=== PATIENT | female | born 1980 | race Caucasian/White ===

== ENCOUNTER 2017-11-18 20:57 | Emergency (ER) | payer BC ==
[~2017-11-18] VITALS: Ht 185.4 cm; Wt 93.0 kg
[~2017-11-18 20:57] MED LIST: ACCUNEB SO1.25 MG/1; ACETAMINOPHEN-1 EAC1 PO; BIRTH CONTROL; CIPRO250 M1 PO; CIPRO500 MG PO; CLONAZEPAM; DHA PRENATAL200 MG; ENOXAPARIN100 MG/11 SUBQ; FLEXERIL PO; FLONASE 0.05%50 MCG NASAL; HYDROCODONE-AP1 EAC6; IBUPROFEN 800800 M1; IBUPROFEN200 M2 PO; LOPRESSOR50 PO; MACROBID 100 M100 M1 PO; NORCO 5-325 TA1 EACH PO; NORFLEX100 MG PO; OMEPRAZOLE40 MG PO; PERCOCET 5-3251 EACH PO; PHENERGAN 25 MG25 MG PO; PREDNISONE 20 M20 M1 PO; PRENATAL; PROMETHAZINE-D120 ML PO; PROMETRIUM100 MG; PULMICORT FLEX90 MCG; REGLAN 5 MG TAB5 M1 PO; TRAMADOL 50 MG50 MG PO; VENTOLIN HFA 1818 GM; VENTOLIN17 GM INH; VICODIN 5-5001 EACH; VICODIN ES TAB1 EACH; VIGAMOX3 M1 OP; VITAMIN D-32000 UNIT; YASMIN 28 TABL1 EACH; ZOFRAN4 MG PO; ZPAK PO
[2017-11-18] MEDS ORDERED: [UNRECOGNIZED DRUG - REMARK] (21:09)
[2017-11-18] MEDS ORDERED: SERTRALINE HCL50 MG PO (21:09)
[2017-11-18] MEDS ORDERED: PREDNISONE50 MG PO (22:35)
[2017-11-18] MEDS ORDERED: AZITHROMYCIN 2250 MG PO (22:35)
[2017-11-18] MEDS ORDERED: PROAIR HFA8.5 GM PO (22:35)
[2017-11-18 23:00] VITALS: BP 129/84
--- NOTE | 2017-11-19 14:03 | EKG ---
[place] [address] ELECTROCARDIOGRAM REPORT Name: SUMMER KONG [id number] Admission: 11/18/17 Attend Phys: Discharge: 11/18/17 Date of : 76 Report #: [id number] THIS REPORT FOR: //name// [facility] ED Test Date: 2017-11-18 Test Time: 21:04:52 Pat Name: SUMMER KONG Department: Room: Gender: F Virtual Customer Assistant: CANDIDO : 1980 Requested By: Mari Quijano Order Number: [id number] Vicki MD: Oscar Angeles Measurements Intervals [place] Rate: 93 P: 57 CO: 164 QRS: 7 QRSD: 98 T: 28 QT: 356 QTc: 443 Interpretive Statements Sinus rhythm Borderline T wave abnormalities No previous ECG available for comparison Electronically Signed On 11-19-2017 14:03:12 CDT by Oscar Angeles [email or web address] <ELECTRONICALLY SIGNED> By: Oscar Angeles MD, [facility] 11/19/17 1403 2104 2104 Oscar Angeles MD, FACC /EPI
[2018-03-04] MEDS ORDERED: ZANAFLEX4 MG PO (12:54)
[2018-03-04] MEDS ORDERED: FLONASE 0.05%50 MCG NASAL (12:54)
[2018-03-04] MEDS ORDERED: ALLERGY RELIEF10 M5 PO (12:54)
[2018-03-04] MEDS ORDERED: MOBIC15 MG PO (13:16)
[2018-03-04] MEDS ORDERED: NEURONTIN 300300 M1 PO (13:16)
[2018-03-30] MEDS ORDERED: MOBIC15 MG PO (08:21)
[2018-03-30] MEDS ORDERED: NEURONTIN 300300 M1 PO (08:21)
[2018-04-01] MEDS ORDERED: NEURONTIN 300300 M1 PO (08:15)
[2018-04-01] MEDS ORDERED: MOBIC15 MG PO ×2 (08:15→08:54)
[2018-04-01] MEDS ORDERED: REQUIP0.5 MG PO (08:54)
== END 2017-11-18 23:11 | disposition home or self-care (01) ==
LOC: M.ERS 20:57
DX: J40 Bronchitis, not specified as acute or chronic (principal); J98.01 Acute bronchospasm; G89.29 Other chronic pain; M54.2 Cervicalgia; M54.9 Dorsalgia, unspecified; F17.210 Nicotine dependence, cigarettes, uncomplicated; Z90.49 Acquired absence of other specified parts of digestive tract

== ENCOUNTER → 2018-01-15 | Outpatient (CLI) | payer BC ==
[~2018-01-15] MED LIST changes: +ALLERGY RELIEF10 M5 PO; +AZITHROMYCIN 2250 MG PO; +MOBIC15 MG PO; +NEURONTIN 300300 M1 PO; +PREDNISONE50 MG PO; +PROAIR HFA8.5 GM PO; +REQUIP0.5 MG PO; +SERTRALINE HCL50 MG PO; +ZANAFLEX4 MG PO; +[UNRECOGNIZED DRUG - REMARK]
== END ==
LOC: M.MRI 08:08
DX: M47.22 Other spondylosis with radiculopathy, cervical region (principal); M48.02 Spinal stenosis, cervical region; M50.11 Cervical disc disorder with radiculopathy, high cervical region

== ENCOUNTER → 2018-03-04 | Outpatient (CLI) | payer BC ==
--- NOTE | 2018-03-22 10:00 | PAINCON ---
[address] [address] PAIN MANAGEMENT CONSULTATION Name: SUMMER KONG [id number] Admission: 03/04/18 Attend Phys: Roel Shaw MD Discharge: Date of : 76 Report #: [id number] THIS REPORT FOR: //name// CC: Martinez Shaw DATE OF SERVICE: 03/04/2018 CHIEF COMPLAINT: Neck pain, back pain and pain down in the arms. HISTORY OF PRESENT ILLNESS: The patient is a 37-year-old female who has been referred to the pain clinic for evaluation. The patient is experiencing pain and discomfort in her arms, left as well as the right side. Notes that the pain increases with movement and finds it difficult to raise her arms at times. Sometimes raising the coffee cup to her mouth can be problematic. Using her hands extended can exacerbate pain. She has a history of pain in her neck. Rates her pain as a 5/5 at this juncture. It has gotten progressively worse. There was some consideration about surgery. The patient did not undergo the surgery secondary to economic reasons. Over the last 2 months, pain has gotten significantly worse. She states that "feels like someone is pulling the nerves out of my arms through my back." Pain is exacerbated with extension, pushing and pulling. She is not sure what makes it better other than cessation of activity. Describes as rhythmic, burning, shooting, aching, pulling, intermittent momentary sharp and stabbing. She had an MRI that showed some pressure in her neck secondary to disk bulging. The patient has been given the option to undergo physical therapy. ALLERGIES: No known drug allergies. MEDICATIONS: Ibuprofen, tizanidine 4 mg t.i.d. and at bedtime, cetirizine 10 mg, Flonase 0.05% nasal spray, omeprazole 40 mg before meals, Zoloft 50 mg, Zanaflex 4 mg t.i.d., and control pills. PAST MEDICAL HISTORY: Sinusitis, varicose veins, knee pain, preclampsia, chronic neck and back pain, deep vein thrombosis, essential hypertension, ulcers, emotional problems, asthma, anemia, epilepsy/seizures. PAST SURGICAL HISTORY: Cholecystectomy in 2001, left knee surgery in 2008. SOCIAL HISTORY: Work History: The patient worked as a ____. She is not working at this juncture, has not worked for the last 2 months. REVIEW OF SYSTEMS: Generally good health, weight change, fatigue, weakness, headaches, wears glasses, hearing loss, ringing in the ears, chronic ear discomfort, chronic sinus problems, swollen glands in the neck, heart trouble, palpitations, shortness of breath when lying flat, chronic cough, [place] [address] PAIN MANAGEMENT CONSULTATION Name: SUMMER KONG [id number] Admission: 03/04/18 Attend Phys: Roel Shaw MD Discharge: Date of : 76 Report #: [id number] asthma/wheezing, frequent diarrhea, heat and cold intolerance, joint pain, joint stiffness, weakness of muscles and joints, muscle pain and cramps, back pain, difficulty walking; varicose veins; frequent headaches, lightheadedness, numbness and tingling sensation, tremors, paralysis, memory loss, confusion, nervousness, depression, anemia. PAIN CLINIC ASSESSMENT/PQRS: 1. History of osteoarthritis. The patient has some arthritic changes in her left knee. 2. Rheumatoid arthritis. The patient is not being treated for rheumatoid arthritis. 3. Height 6 feet 1 inch, weight 221 pounds, BMI is 29.2. 4. Vital Signs: Blood pressure 137/76, heart rate 92, respiratory rate 16, room air saturation 99%, temperature 98.4. 5. Pain intensity 5/10. 6. Fall risk. The patient has not fallen in the last 3 months. 7. Blood thinner. The patient is not on a blood thinning medication. 8. Hypertension. The patient is being treated for hypertension. 9. Opioids greater than 6 weeks. The patient is not on a chronic opioid regimen. 10. Risk assessment tool, low for opioid use. 11. Functional assessment tool. 12. Recreational drug use: The patient denies. 13. Tobacco: The patient does not smoke at this juncture. 14. Alcohol: The patient denies frequent use of alcoholic beverages. The patient answers affirmative. Two attempts to harm herself. States that this happened about 1-1/2 years ago . Has not had problems with that since. PHYSICAL EXAMINATION: GENERAL: The patient is a well-developed, well-nourished white female. Appears her stated age. She is alert and oriented x 3. Affect is appropriate. Speech is fluent. HEENT: Normocephalic, atraumatic. Extraocular eye muscles intact. Sclerae nonicteric. Mucous membranes are moist. NECK: With some decreased range of motion. The patient has pain radiating down into the left as well as the right arm. Note some numbness, tingling and burning in her arms bilaterally. Experience some pins and needle sensation down in her hands. Deep tendon reflexes are +1 in the biceps bilaterally. Upper extremity muscle strength is judged to be 5-/5 for the major muscle groups in the upper extremity. The patient has some discomfort in the mid portion of her back at approximately T7-T8 in the area of rhomboids. The patient has some pain and discomfort in the low back area in the area of the L5/S1 area in the paraspinous muscles. The patient is without significant scoliosis, kyphosis or lordosis. HEART: Regular rate and rhythm, S1, [place] [address] PAIN MANAGEMENT CONSULTATION Name: SUMMER KONG Room: [facility]#: [id number] Admission: 03/04/18 Attend Phys: Roel Shaw MD Discharge: Date of : 76 Report #: [id number] ABDOMEN: Nontender. Bowel sounds are present. EXTREMITIES: Lower extremity muscle strength is judged to be 5/5 for the major muscle groups in the lower extremities. The patient does complain of some pain in the left posterior L5-S1 dermatomal distribution. LABORATORY DATA: MRI of the cervical spine dated 01/15/2018 reveals: 1. At C2-C3, there is no significant disk bulge or protrusion identified. There is no significant central spinal canal or neural foraminal stenosis. 2. At C3-C4, there is a mild broad-based posterior disk bulge with a superimposed shallow left paracentral disk protrusion with a 2 x 3 mm hyperintensity within the shallow disk protrusion consistent with an annular fissure seen on T2. No significant central spinal canal or neural foraminal stenosis. There is mild left paracentral canal stenosis. 3. At C4-C5, there is no significant disk bulge or protrusion identified. There is no significant central canal or neural foraminal stenosis. 4. At C5-C6, there is a broad-based posterior disk bulge, which narrows the thecal sac. No significant central spinal canal stenosis. There is mild right and moderate to severe left neural foraminal stenosis due to uncovertebral and facet arthrosis. 5. At C6-C7, there is no significant disk bulge or protrusion identified. There is no significant central canal or neural foraminal stenosis. 6. At C7-T1, there is no significant disk bulge or protrusion identified. There is no significant central spinal canal or neural foraminal stenosis. IMPRESSION: Moderate to severe left neural foraminal stenosis at C5-C6 due to uncovertebral and facet arthrosis. Shallow left paracentral disk protrusion at C3-C4, mildly efface seen the ventral thecal sac. IMPRESSION: 1. Cervical radiculopathy involving left and right upper extremity with numbness and tingling in the C5-C6 dermatomal distribution. 2. Sinusitis. 3. Varicose veins. 4. Knee pain. 5. Preclampsia. 6. Chronic neck and back pain. 7. Deep vein thrombosis. 8. Essential hypertension. 9. Ulcers. 10. Emotional problems. 11. Asthma. 12. Anemia. 13. Epilepsy/seizures. RECOMMENDATIONS: We discussed treatment options with the patient. Risks and benefits of a cervical epidural steroid injection [place] [address] PAIN MANAGEMENT CONSULTATION Name: SUMMER KONG Room: [facility] JOSE LUIS Cm#: [id number] Admission: 03/04/18 Attend Phys: Roel Shaw MD Discharge: Date of : 76 Report #: [id number] states that she did have spinal headache after previous epidural steroid injection. At this juncture, we will have the patient trial. We will have the patient try meloxicam 15 mg 1 p.o. daily. She will also try gabapentin 300 mg 1 p.o. t.i.d. If her pain persists, she will return to the pain clinic at which time she can consider whether a cervical epidural steroid injection would be chosen. We would like to thank you for letting us participate in her care. We hope she continues to improve. <ELECTRONICALLY SIGNED> By: Roel Shaw MD 03/22/18 1000 1340 1724N. Braden Shaw MD /estela
== END ==
LOC: M.PC 04:56
DX: M54.12 Radiculopathy, cervical region (principal); M54.5 Low back pain; J32.9 Chronic sinusitis, unspecified; I10 Essential (primary) hypertension; G89.29 Other chronic pain; I82.409 Acute embolism and thrombosis of unspecified deep veins of unspecified lower extremity; J45.909 Unspecified asthma, uncomplicated; R20.0 Anesthesia of skin; G40.909 Epilepsy, unspecified, not intractable, without status epilepticus; I83.90 Asymptomatic varicose veins of unspecified lower extremity; F98.9 Unspecified behavioral and emotional disorders with onset usually occurring in childhood and adolescence; L98.499 Non-pressure chronic ulcer of skin of other sites with unspecified severity; D64.9 Anemia, unspecified

== ENCOUNTER → 2018-04-01 | Outpatient (CLI) | payer BC ==
--- NOTE | 2018-04-21 16:28 | PAINCON ---
[facility] [address] [place] [address] [address] PAIN MANAGEMENT CONSULTATION Name: SUMMER KONG Room: [facility] Soila#: [id number] Admission: 04/01/18 Attend Phys: Roel Shaw MD Discharge: Date of : 76 Report #: [id number] THIS REPORT FOR: //name// CC: Martinez Shaw DATE OF SERVICE: 04/01/2018 CHIEF COMPLAINT: "The pain has improved but I have been a little sleepy with gabapentin." FOLLOWUP HISTORY: The patient is a 37-year-old female who has been seen in the Pain Clinic because of cervical radicular pain. She had been experiencing pain in her neck, back, and pain which radiated down into her arms, involved her fingers and hands. She works at [employer]. She drives a forklift. She constantly has to turn her head looking back behind her while she is driving as well as looking at the rear-view mirrors on her lift-truck. She notes that these activities have sometimes increased her pain and discomfort. She has been on gabapentin for about 3 weeks. She noticed that pain shooting down into her arms and numbness involving her fingers has improved. She has had no complication from that. She has now decreased the gabapentin from 300 mg t.i.d. to 100 mg t.i.d. She also has a history of heart palpitations. She is not sure but thinks that she has had some increased palpitations at this juncture. She is not sure that whether or not it is associated with the use of gabapentin. She uses meloxicam. She feels that medication is helpful. She has been using ibuprofen as well as has nonsteroidal anti-inflammatory medication and other medications that she uses. She feels that her pain is a 2/10 at this juncture. It can rise to the level of a 5 with certain activities. ALLERGIES: No known drug allergies. CURRENT MEDICATIONS: Ibuprofen 500 mg b.i.d., 1000 mg daily on occasion, tizanidine 4 mg t.i.d. at bedtime, cetirizine 10 mg, Flonase 0.05% nasal spray, omeprazole 40 mg before meals, Zoloft 40 mg, Zanaflex 4 mg t.i.d., control pills. PAIN CLINIC ASSESSMENT/PQRS: 1. History of osteoarthritis: The patient is not being treated for osteoarthritis but does have some arthritic changes in her left knee. 2. Height 6 feet 1 inch, weight 228 pounds, BMI is 30.1. 3. Vital signs: Blood pressure 133/88, heart rate 76, respiratory rate 16, room air saturation 97%, temperature 98.6. 4. Pain intensity: 2/10. 5. Fall history: The patient has not fallen in the last 3 months. 6. Blood thinner: The patient is not on a blood thinning medication. 7. Hypertension: The patient [place] [address] PAIN MANAGEMENT CONSULTATION Name: LUANNSUMMER TAMIA Room: [facility] JOSE LUIS Cm#: [id number] Admission: 04/01/18 Attend Phys: Roel Shaw MD Discharge: Date of : 76 Report #: [id number] 8. Opioids greater than 6 weeks: The patient is not on chronic opioid medications. 9. Risk assessment tool: Low for use of opioids. 10. Functional assessment tool. 11. Recreational drug use: The patient denies. 12. Tobacco: The patient does smoke and has smoked for 23 years. She smokes 1 pack of cigarettes per day. We discussed the benefits of smoking cessation. 13. Alcohol: The patient denies use of alcoholic beverages. PHYSICAL EXAMINATION: GENERAL: The patient is a well-developed, well-nourished white female. She appears her stated age. She is alert and oriented x 3. Affect is appropriate. Speech is fluent. The patient's legs are in constant motion. HEENT: Normocephalic, atraumatic. Extraocular eye muscles intact. Sclerae nonicteric. Mucous membranes moist. NECK: With some decreased range of motion. The patient states that the pain has been radiating down to her arms, numbness and tingling as well as the burning has improved significantly since using gabapentin. Less pins and needle sensation also has resolved. Muscle strength though judged to be 5/5 for the major muscle groups in the upper extremity. ABDOMEN: Nontender. Bowel sounds present. EXTREMITIES: Lower extremities, 5/5 for the major muscle groups. The patient without scoliosis, kyphosis, or lordosis. IMPRESSION: 1. Cervical radiculopathy involving the left and right upper extremity with numbness and tingling in the C5-C6 dermatomal distribution - improved with current medical regimen using gabapentin. 2. Sinusitis. 3. Varicose veins. 4. Knee pain. 5. Preeclampsia. 6. Chronic neck and back pain. 7. Deep vein thrombosis. 8. Essential hypertension. 9. Ulcers. 10. Emotional problems. 11. Asthma. 12. Anemia. 13. Epilepsy, seizures. RECOMMENDATIONS: We discussed treatment options with the patient. We had a long discussion regarding the effects of nonsteroidal anti-inflammatory medication and their mode of action. We discussed the problems with them and possibly irritation of the GI tract. The patient has had some ulcers. We would recommend that she stop using the meloxicam [place] [address] PAIN MANAGEMENT CONSULTATION Name: SUMMER KONG [facility] [id number] Admission: 04/01/18 Attend Phys: Roel Shaw MD Discharge: Date of : 76 Report #: [id number] anti-inflammatory medications if she continues to have some problems with her GI tract. The patient overall feels that things have improved. She likes the benefits that she has got from the gabapentin medication. She does have a history of restless legs syndrome and has used Klonopin in the past. She is wanting to return to work. She feels that she is less sleepy with decreasing the gabapentin. If she continues to find the benefits of gabapentin there but continues to have somnolence associated with it, we can try Gralise, which is a slow-release gabapentin type medication which most people who are unable to take gabapentin because of the side effects of somnolence are more apt to be able to take it with less problems. She will try Requip 0.5 mg one p.o. at bedtime. She does have restless legs syndrome. This medication has been ____ to be helpful with restless legs. She will call us if she has any problems. A script for Requip 0.5 mg one p.o. daily has been written. Also a script for meloxicam 15 mg one p.o. daily with two refills have been provided as well. We would like to thank you for letting us participate in her care. We hope she continues to improve. <ELECTRONICALLY SIGNED> By: Roel Shaw MD 04/21/18 1628 0911 1006N. Braden Shaw MD /nt
== END ==
LOC: M.PC 04:41
DX: J32.9 Chronic sinusitis, unspecified (principal); M54.12 Radiculopathy, cervical region; M25.569 Pain in unspecified knee; D64.9 Anemia, unspecified; M54.5 Low back pain; M54.2 Cervicalgia; G89.29 Other chronic pain; J45.909 Unspecified asthma, uncomplicated; R56.9 Unspecified convulsions; L98.499 Non-pressure chronic ulcer of skin of other sites with unspecified severity; F98.9 Unspecified behavioral and emotional disorders with onset usually occurring in childhood and adolescence; I10 Essential (primary) hypertension; I82.409 Acute embolism and thrombosis of unspecified deep veins of unspecified lower extremity; I83.813 Varicose veins of bilateral lower extremities with pain

== ENCOUNTER 2018-06-09 22:44 | Emergency (ER) | payer BC ==
[~2018-06-09] VITALS: Ht 185.4 cm; Wt 99.8 kg
[2018-06-09] MEDS ORDERED: HYDROCODON-ACE1 EAC5 PO (22:52)
[2018-06-09 23:54] LABS: URINE BILIRUBIN NEGATIVE (Negative); URINE BLOOD NEGATIVE (Negative); URINE CLARITY CLEAR; URINE COLOR DARK YELLOW; URINE GLUCOSE-RANDOM NEGATIVE (Negative); URINE KETONES NEGATIVE (Negative); URINE LEUKOCYTES-REFLEX NEGATIVE (Negative); URINE NITRITE-REFLEX NEGATIVE (Negative); URINE PROTEIN NEGATIVE (Negative); URINE SPECIFIC GRAVITY >= 1.030 (1.005-1.030); URINE UROBILINOGEN 0.2 E.U./dl (0.2-1.0)
[2018-06-10 00:10] LABS: ABSOLUTE EOSINOPHILS 0.2 thou/uL (0.0-0.7); ABSOLUTE LYMPHOCYTES 2.7 thou/uL (0.8-5.3); ABSOLUTE MONOCYTES 0.5 thou/uL (0.0-1.2); ABSOLUTE NEUTROPHILS 8.2 thou/uL (1.6-8.1); BASOPHILS 0.4 %; EOSINOPHILS 1.7 %; HEMATOCRIT 39.2 % (37.0-47.0); HEMOGLOBIN 12.2 gm/dL (12.0-15.0); LYMPHOCYTES 23.1 %; MCH 21.4 pg (26.0-34.0); MCHC 31.1 g/dL (28.0-37.0); MCV 68.8 fL (80.0-100.0); MONOCYTES 4.1 %; NUCLEATED RBCS 0 /100WBC; PLATELET COUNT* 247 thou/uL (150-400); POLYS 70.7 %; RBC 5.69 mil/uL (4.20-5.00); RDW-CV 17.5 % (10.5-14.5); WBC 11.6 thou/uL (4.0-11.0)
[2018-06-10 00:13] LABS: CALCIUM 9.2 mg/dL (8.5-10.1); CREATININE 0.9 mg/dL (0.6-1.3); POTASSIUM 3.7 mmol/L (3.5-5.1)
[2018-06-10 00:23] LABS: ALBUMIN 4.3 g/dL (3.4-5.0); TOTAL BILIRUBIN 0.4 mg/dL (<0.1-1.0); TOTAL PROTEIN 7.8 g/dL (6.4-8.2)
[2018-06-10 01:51] LABS: ANISOCYTOSIS 2+; HYPOCHROMASIA 2+; MICROCYTES 2+
[2018-06-10 01:52] LABS: POIKILOCYTOSIS Occasional; POLYCHROMASIA Occasional
[2018-06-10] MEDS ORDERED: PERCOCET 10-321 EACH PO (02:09)
[2018-06-10 02:38] VITALS: BP 126/80
== END 2018-06-10 02:40 | disposition home or self-care (01) ==
LOC: M.ERS 22:44
PROVIDERS: Emergency Medicine
DX: N83.201 Unspecified ovarian cyst, right side (principal); F17.210 Nicotine dependence, cigarettes, uncomplicated; G89.29 Other chronic pain; M54.2 Cervicalgia; M54.9 Dorsalgia, unspecified; Z90.49 Acquired absence of other specified parts of digestive tract; Z86.718 Personal history of other venous thrombosis and embolism

== ENCOUNTER 2018-10-18 16:01 | Emergency (ER) | payer BC ==
[~2018-10-18] VITALS: Ht 185.4 cm; Wt 95.3 kg
[~2018-10-18 16:01] MED LIST changes: +HYDROCODON-ACE1 EAC5 PO; +PERCOCET 10-321 EACH PO
[2018-10-18 16:29] LABS: ABSOLUTE EOSINOPHILS 0.2 thou/uL (0.0-0.7); ABSOLUTE LYMPHOCYTES 1.7 thou/uL (0.8-5.3); ABSOLUTE MONOCYTES 0.3 thou/uL (0.0-1.2); ABSOLUTE NEUTROPHILS 4.8 thou/uL (1.6-8.1); BASOPHILS 0.6 %; EOSINOPHILS 2.3 %; HEMATOCRIT 37.8 % (37.0-47.0); HEMOGLOBIN 11.9 gm/dL (12.0-15.0); LYMPHOCYTES 23.8 %; MCH 21.4 pg (26.0-34.0); MCHC 31.4 g/dL (28.0-37.0); MCV 68.2 fL (80.0-100.0); MONOCYTES 4.6 %; MPV 9.4 fl. (7.2-11.1); NUCLEATED RBCS 0 /100WBC; PLATELET COUNT* 211 thou/uL (150-400); POLYS 68.7 %; RBC 5.53 mil/uL (4.20-5.00)
[2018-10-18 16:38] LABS: CALCIUM 8.6 mg/dL (8.5-10.1); CREATININE 1.1 mg/dL (0.6-1.3); POTASSIUM 3.6 mmol/L (3.5-5.1)
[2018-10-18 16:42] LABS: ALBUMIN 3.9 g/dL (3.4-5.0); TOTAL BILIRUBIN 0.4 mg/dL (<0.1-1.0); TOTAL PROTEIN 7.1 g/dL (6.4-8.2)
[2018-10-18 17:34] LABS: URINE BILIRUBIN NEGATIVE (Negative); URINE BLOOD NEGATIVE (Negative); URINE CLARITY CLEAR; URINE COLOR YELLOW; URINE GLUCOSE-RANDOM NEGATIVE (Negative); URINE KETONES NEGATIVE (Negative); URINE LEUKOCYTES-REFLEX 1+ (Negative); URINE NITRITE-REFLEX NEGATIVE (Negative); URINE PROTEIN NEGATIVE (Negative); URINE UROBILINOGEN 0.2 E.U./dl (0.2-1.0)
[2018-10-18 17:43] LABS: MUCUS 0-3 Light strn/LPF (None Seen); SQUAMOUS >10 Many /LPF (0-3)
[2018-10-18 17:44] LABS: URINE WBC-REFLEX >25 Many /HPF (0-5)
[2018-10-18 17:45] LABS: CASTS None Seen /LPF (None Seen); CRYSTALS None Seen /LPF (None Seen); URINE RBC None Seen /HPF (0-2)
[2018-10-18 17:56] LABS: OVALOCYTES Occasional; PLATELET ESTIMATE ADEQUATE
[2018-10-18 17:57] LABS: ANISOCYTOSIS 1+; MICROCYTES 3+
[2018-10-18 17:59] LABS: HYPOCHROMASIA 2+
[2018-10-18] MEDS ORDERED: KEFLEX500 M1 PO (18:11)
[2018-10-18] MEDS ORDERED: NORCO 5-325 TA1 EACH PO (18:12)
[2018-10-18] MEDS ORDERED: PYRIDIUM200 MG PO (18:19)
[2018-10-18 18:49] VITALS: BP 109/72
== END 2018-10-18 18:45 | disposition home or self-care (01) ==
LOC: M.ERS 16:01
PROVIDERS: Nurse Practitioner Family
DX: N39.0 Urinary tract infection, site not specified (principal); R11.2 Nausea with vomiting, unspecified; G89.29 Other chronic pain; M54.2 Cervicalgia; M54.9 Dorsalgia, unspecified; F17.210 Nicotine dependence, cigarettes, uncomplicated; Z90.49 Acquired absence of other specified parts of digestive tract

== ENCOUNTER 2018-11-24 19:53 | Emergency (ER) | payer BC ==
[~2018-11-24] VITALS: Ht 185.4 cm; Wt 93.0 kg
[~2018-11-24 19:53] MED LIST changes: +KEFLEX500 M1 PO; +PYRIDIUM200 MG PO
[2018-11-24 20:29] LABS: ABSOLUTE EOSINOPHILS 0.1 thou/uL (0.0-0.7); ABSOLUTE LYMPHOCYTES 1.5 thou/uL (0.8-5.3); ABSOLUTE MONOCYTES 0.4 thou/uL (0.0-1.2); ABSOLUTE NEUTROPHILS 3.6 thou/uL (1.6-8.1); BASOPHILS 0.6 %; EOSINOPHILS 2.1 %; HEMATOCRIT 37.4 % (37.0-47.0); HEMOGLOBIN 11.9 gm/dL (12.0-15.0); LYMPHOCYTES 26.1 %; MCH 21.6 pg (26.0-34.0); MCHC 31.8 g/dL (28.0-37.0); MONOCYTES 7.6 %; MPV 9.3 fl. (7.2-11.1); NUCLEATED RBCS 0 /100WBC; PLATELET COUNT* 244 thou/uL (150-400); POLYS 63.6 %; RBC 5.51 mil/uL (4.20-5.00); RDW-CV 18.9 % (10.5-14.5); WBC 5.7 thou/uL (4.0-11.0)
[2018-11-24 20:38] LABS: ANION GAP 10 mmol/L (7-16); BUN 15 mg/dL (7-18); CALCIUM 9.3 mg/dL (8.5-10.1); CHLORIDE 105 mmol/L (98-107); CO2 26 mmol/L (21-32); CREATININE 0.9 mg/dL (0.6-1.3); GLUCOSE 97 mg/dL (70-99); SODIUM 141 mmol/L (136-145)
[2018-11-24 20:39] LABS: PROTIME 10.7 Seconds (9.20-11.50)
[2018-11-24 20:48] LABS: ALBUMIN 4.2 g/dL (3.4-5.0); ALKALINE PHOSPHATASE 62 U/L (46-116); LIPASE 122 U/L (73-393); NT-PRO BRAIN NAT PEPTIDE 47 pg/mL (<300); SGOT 13 U/L (15-37); SGPT 23 U/L (30-65); TOTAL BILIRUBIN 0.3 mg/dL (<0.1-1.0); TOTAL PROTEIN 7.5 g/dL (6.4-8.2); TROPONIN-I LEVEL <0.06 ng/mL (<0.06)
[2018-11-24 20:52] LABS: ANISOCYTOSIS 1+; PLATELET ESTIMATE ADEQUATE
[2018-11-24 20:53] LABS: MICROCYTES 3+
[2018-11-24 20:54] LABS: HYPOCHROMASIA 1+
[2018-11-24 23:35] VITALS: BP 118/80
--- NOTE | 2018-11-25 10:51 | EKG ---
[place] [address] ELECTROCARDIOGRAM REPORT Name: LUANNSUMMERPRINCESS CANTRELL [id number] Admission: 11/24/18 Attend Phys: Discharge: 11/24/18 Date of : 76 Report #: [id number] THIS REPORT FOR: //name// [facility] ED Test Date: 2018-11-24 Test Time: 20:00:57 Pat Name: SUMMER KONG Department: Room: Gender: F Relocation Services Specialist: LINDA : 1980 Requested By: Sam Brown Order Number: [id number] MD: Martinez English Measurements Intervals [place] Rate: 69 P: 69 NE: 156 QRS: 5 QRSD: 106 T: 44 QT: 427 QTc: 458 Interpretive Statements Sinus rhythm Probable left atrial enlargement Compared to ECG 11/18/2017 21:04:52 no change Electronically Signed On 11-25-2018 10:51:29 CDT by Martinez English [email or web address] <ELECTRONICALLY SIGNED> By: Martinez English MD, [facility] 11/25/18 1051 99 99 Martinez English MD, FACC /EPI
== END 2018-11-24 23:35 | disposition home or self-care (01) ==
LOC: M.ERS 19:53
PROVIDERS: Emergency Medicine
DX: R55 Syncope and collapse (principal); F17.210 Nicotine dependence, cigarettes, uncomplicated; M54.2 Cervicalgia; G89.29 Other chronic pain; Z86.718 Personal history of other venous thrombosis and embolism; Z90.49 Acquired absence of other specified parts of digestive tract

== ENCOUNTER → 2019-01-10 | Outpatient (CLI) | payer BC | LOC: M.MRI 01-04 08:42 | DX: M79.601 Pain in right arm (principal); M79.641 Pain in right hand ==

== ENCOUNTER → 2019-06-16 | Outpatient (CLI) | payer BC ==
[~2019-06-16] MED LIST changes: +MEDROLDOSEPACK PO; +NABUMETONE 750750 M1 PO; +VENTOLIN HFA 1818 GM INH
[2019-06-16 18:34] LABS: ABSOLUTE BASOPHILS 0.1 thou/uL (0.0-0.2); ABSOLUTE EOSINOPHILS 0.1 thou/uL (0.0-0.7); ABSOLUTE LYMPHOCYTES 1.5 thou/uL (0.8-5.3); ABSOLUTE MONOCYTES 0.3 thou/uL (0.0-1.2); ABSOLUTE NEUTROPHILS 6.1 thou/uL (1.6-8.1); BASOPHILS 0.7 %; HEMATOCRIT 39.9 % (37.0-47.0); HEMOGLOBIN 13.2 gm/dL (12.0-15.0); LYMPHOCYTES 18.6 %; MCH 23.9 pg (26.0-34.0); MCV 72.4 fL (80.0-100.0); MONOCYTES 3.9 %; MPV 9.3 fl. (7.2-11.1); NUCLEATED RBCS 0 /100WBC; PLATELET COUNT* 192 thou/uL (150-400); POLYS 75.8 %; RBC 5.51 mil/uL (4.20-5.00); RDW-CV 18.9 % (10.5-14.5)
[2019-06-16 18:47] LABS: ALBUMIN 4.1 g/dL (3.4-5.0); ALKALINE PHOSPHATASE 66 U/L (46-116); ANION GAP 12 mmol/L (7-16); BUN 16 mg/dL (7-18); CALCIUM 8.9 mg/dL (8.5-10.1); CHLORIDE 104 mmol/L (98-107); CHOLESTEROL 208 mg/dL (<200); CO2 25 mmol/L (21-32); GLUCOSE 103 mg/dL (70-99); HDL CHOLESTEROL 43 mg/dL (>40); LDL CHOLESTEROL 147 mg/dL (<100); MAGNESIUM 1.6 mg/dL (1.8-2.4); POTASSIUM 3.9 mmol/L (3.5-5.1); SGOT 10 U/L (15-37); SGPT 17 U/L (30-65); SODIUM 141 mmol/L (136-145); TC:HDL 4.8 Ratio (Not establshd); TOTAL BILIRUBIN 0.3 mg/dL (<0.1-1.0); TOTAL PROTEIN 7.5 g/dL (6.4-8.2); TRIGLYCERIDE 94 mg/dL (<150); VLDL 19 mg/dL (<40)
[2019-06-16 18:49] LABS: SERUM ASSESSMENT CLEAR
[2019-06-16 20:12] LABS: PLATELET ESTIMATE ADEQUATE
[2019-06-16 20:13] LABS: ANISOCYTOSIS 1+; MICROCYTES 1+
[2019-06-18 02:06] LABS: GLYCOHEMOGLOBIN (HGB A1C) 5.2 % (4.8-5.6)
== END ==
LOC: M.LAB 17:52
PROVIDERS: Internal Medicine
DX: I82.90 Acute embolism and thrombosis of unspecified vein (principal); I47.1 Supraventricular tachycardia; I10 Essential (primary) hypertension; R00.2 Palpitations

== ENCOUNTER 2019-06-19 11:41 | Emergency (ER) | payer BC ==
[~2019-06-19] VITALS: Ht 185.4 cm; Wt 86.2 kg
[~2019-06-19 11:41] MED LIST changes: -MEDROLDOSEPACK PO; -NABUMETONE 750750 M1 PO; -VENTOLIN HFA 1818 GM INH
[2019-06-19 12:34] LABS: INFLUENZA A ANTIGEN Negative (Negative); INFLUENZA B ANTIGEN Negative (Negative)
[2019-06-19 13:07] LABS: ABSOLUTE BASOPHILS 0.1 thou/uL (0.0-0.2); ABSOLUTE EOSINOPHILS 0.2 thou/uL (0.0-0.7); ABSOLUTE LYMPHOCYTES 1.7 thou/uL (0.8-5.3); ABSOLUTE MONOCYTES 0.5 thou/uL (0.0-1.2); ABSOLUTE NEUTROPHILS 4.7 thou/uL (1.6-8.1); EOSINOPHILS 2.3 %; HEMATOCRIT 36.9 % (37.0-47.0); HEMOGLOBIN 12.1 gm/dL (12.0-15.0); LYMPHOCYTES 23.7 %; MCH 23.8 pg (26.0-34.0); MCHC 32.8 g/dL (28.0-37.0); MCV 72.5 fL (80.0-100.0); MONOCYTES 7.1 %; MPV 9.1 fl. (7.2-11.1); NUCLEATED RBCS 0 /100WBC; PLATELET COUNT* 183 thou/uL (150-400); POLYS 65.9 %; RBC 5.09 mil/uL (4.20-5.00); RDW-CV 18.8 % (10.5-14.5); WBC 7.1 thou/uL (4.0-11.0)
[2019-06-19 13:14] LABS: CALCIUM 8.3 mg/dL (8.5-10.1); POTASSIUM 3.6 mmol/L (3.5-5.1)
[2019-06-19 13:17] LABS: APTT 24.9 Seconds (25.0-31.3); INR 1.1
[2019-06-19 13:25] LABS: ALBUMIN 3.4 g/dL (3.4-5.0); TOTAL BILIRUBIN 0.1 mg/dL (<0.1-1.0); TOTAL PROTEIN 6.3 g/dL (6.4-8.2)
[2019-06-19] MEDS ORDERED: ZPAK PO (15:44)
[2019-06-19] MEDS ORDERED: NABUMETONE 750750 M1 PO (15:44)
[2019-06-19] MEDS ORDERED: VENTOLIN HFA 1818 GM INH (15:44)
[2019-06-19] MEDS ORDERED: MEDROLDOSEPACK PO (15:44)
[2019-06-19] MEDS ORDERED: ZANAFLEX4 MG PO (15:46)
[2019-06-19 16:13] VITALS: BP 121/69
--- NOTE | 2019-06-20 17:06 | EKG ---
[place] [address] ELECTROCARDIOGRAM REPORT Name: LUANNSUMMERPRINCESS CANTRELL Room: [facility]#: [id number] Admission: 06/19/19 Attend Phys: Discharge: 06/19/19 Date of : 76 Report #: [id number] THIS REPORT FOR: //name// [facility] ED Test Date: 2019-06-19 Test Time: 11:47:20 Pat Name: SUMMER KONG Department: Room: Gender: F Professor Of Practice: ZEINA : 1980 Requested By: Lachelle Woodard Order Number: [id number] MD: Oscar Angeles Measurements Intervals [place] Rate: 54 P: 25 VA: 157 QRS: 25 QRSD: 111 T: 36 QT: 461 QTc: 437 Interpretive Statements Sinus rhythm Borderline T abnormalities, anterior leads Compared to ECG 11/24/2018 20:00:57 T-wave abnormality now present Electronically Signed On 06-20-2019 17:06:19 [employer] by Oscar Angeles [email or web address] <ELECTRONICALLY SIGNED> By: Oscar Angeles MD, [facility] 06/20/19 1706 1147 1147 Oscar Angeles MD, FACC /EPI
== END 2019-06-19 16:13 | disposition home or self-care (01) ==
LOC: M.ERS 11:41
PROVIDERS: Nurse Practitioner Family
DX: S29.012A Strain of muscle and tendon of back wall of thorax, initial encounter (principal); J20.9 Acute bronchitis, unspecified; M79.604 Pain in right leg; V49.49XA Driver injured in collision with other motor vehicles in traffic accident, initial encounter; Y93.89 Activity, other specified; Y92.89 Other specified places as the place of occurrence of the external cause; Y99.8 Other external cause status

== ENCOUNTER → 2019-08-02 | Day surgery (SDC) | payer BC ==
[~2019-08-02] MED LIST changes: +CEFTRIAXON1 GM/50 M1 IVPB; +CEFUROXIME500 MG PO; +FLOMAX0.4 MG PO; +HYDROCODONE-IB1 EAC3 PO; +IBU400 MG PO; +MEDROLDOSEPACK PO; +NABUMETONE 750750 M1 PO; +NORCO 5-325 TA1 EAC1 PO; +ONDANSETRON HCL4 M2 PO; +OXYBUTYNIN 5 MG5 M2 PO; +PEPCID20 MG PO; +PHENAZOPYRIDIN100 M1 PO; +PHENAZOPYRIDIN200 M2 PO; +SENOKOT-S TABL1 EACH PO; +VENTOLIN HFA 1818 GM INH; +VOLTAREN GEL 1100 G1 TOP
--- NOTE | 2019-08-02 15:57 | OP ---
[address] [address] OPERATIVE REPORT Name: SUMMER KONG Room: [facility].#: [id number] Admission: 08/02/19 Attend Phys: Ren Pérez MD Discharge: Date of : 76 Report #: [id number] THIS REPORT FOR: //name// cc: Martinez Vazquez MD, David L. MD ~ THIS REPORT FOR: //name// CC: Martinez Pérez DATE OF SERVICE: 08/02/2019 UROLOGY OPERATIVE NOTE PREOPERATIVE DIAGNOSIS: Right nephrolithiasis. POSTOPERATIVE DIAGNOSIS: Right nephrolithiasis. PROCEDURES PERFORMED: 1. Cystoscopy. 2. Right retrograde pyelogram. 3. Right ureteroscopy with laser lithotripsy. 4. Right ureteral stent placement. 5. 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 STAFF: Ren Pérez MD. COMPLICATIONS: None. DRAINS: 1. A 4.5-South African x 28 cm right upper pole stent. 2. A 4.5-South African x 28 cm right lower pole stent. INDICATIONS: The patient is a 38-year-old female who I met in the Urology clinic due to right nephrolithiasis. She has had multiple CT scans that demonstrated 2 punctate stones in the right collecting system. There is no other indication for her significant right flank pain. I had a thorough discussion with the patient in regards to her nonobstructing small renal stones. I do not believe the stones to be the cause for her pain, but at this point, she would like them to remove to rule out them as a source for her pain. We discussed risks and benefits of ureteroscopy and stent placement. She is willing to proceed. DESCRIPTION OF PROCEDURE: On 08/02/2019, after consent was obtained, the patient was taken to the operating room and placed in supine position. She was then placed under general anesthesia. She received [place] [address] OPERATIVE REPORT Name: SUMMER KONG Room: [facility].#: [id number] Admission: 08/02/19 Attend Phys: Ren Pérez MD Discharge: Date of : 76 Report #: [id number] antibiotic coverage. She was then placed in dorsal lithotomy and her genitals were prepped and draped in normal sterile fashion. I began the procedure by inserting the 22.5-South African rigid cystoscope transurethrally without any difficulty. Once in the bladder, I identified 2 right ureteral orifices. I cannulated the most medial one and retrograde pyelogram demonstrated a fine appearing ureter and upper pole collecting system with a single calyx. At this point, a sensor wire was passed up the upper pole. I selected an 11-13-46 cm access sheath and passed this up over the sensor wire in mid ureter. Flexible ureteroscopy was then utilized to advance the scope through the proximal ureter into the calyx. There was no evidence of any stone burden. There was some minor calcifications subepithelial, but again no stone burden. I then placed a sensor wire into the upper pole through the access sheath and the ureteroscope visualizing the entire ureter, which was free of any injury and/or stone burden. I selected a 4.5-South African x 28 cm stent, which passed up the upper pole under fluoroscopic guidance, had a good coil in the urinary bladder under direct visual guidance. I then turned my attention to the most lateral UO corresponding to the lower pole. This was cannulated with a 5-South African open-ended stent. A retrograde pyelogram demonstrated mid and lower pole calyces without any filling defects or extravasation. A sensor wire was then passed up into the mid pole under fluoroscopic guidance. I then reselected the access sheath and passed under fluoroscopy over the sensor wire into the distal and mid ureter. Flexible ureteroscopy was then utilized and reagan pyeloscopy identified 1 mid pole calyx with 2 subepithelial stones corresponding to the stones that were identified on CT. I used a 272 micron laser fiber to unroof these. Stones were very small and essentially dusted prior to being released from the epithelium. I utilized a 1.9 basket to try to grasp these, however, they were stuck around a ridge of the papilla and I could not access these. I reinserted the laser fiber, continued dusting the fragments until they were less than 0.5 mm or so. At this point, I repassed the sensor wire through the ureteroscope. I withdrew the ureteroscope, visualized the entire ureter, which was free of any injury and/or stone burden. I then selected a 4.5-South African x 28 cm stent, passed this up over the sensor wire with good coil in the mid pole under fluoroscopic guidance, good coil in the urinary bladder under direct visual guidance. The patient's bladder was emptied and scope was withdrawn. <ELECTRONICALLY SIGNED> By: Ren Pérez MD 08/02/19 1557 1408 1459Ren Pérez MD /nt
== END | disposition home or self-care (01) ==
LOC: M.SUR 06:47
DX: N20.0 Calculus of kidney (principal); Z98.890 Other specified postprocedural states; Z79.899 Other long term (current) drug therapy

== ENCOUNTER 2019-08-03 21:39 | Inpatient (IN) | payer BC ==
[~2019-08-03] VITALS: Ht 185.4 cm; Wt 97.1 kg
--- NOTE | ~2019-08-03 | OP ---
[address] [address] OPERATIVE REPORT Name: SUMMER KONG Room: [address] M.R.#: [id number] Admission: 08/04/19 Attend Phys: Patricio Lares Discharge: Date of : 76 Report #: [id number] THIS REPORT FOR: //name// cc: Martinez Vazquez MD, David L. MD ~ THIS REPORT FOR: //name// CC: Martinez Irving DATE OF SERVICE: 08/05/2019 PREOPERATIVE DIAGNOSIS: Right flank pain. POSTOPERATIVE DIAGNOSIS: Right flank pain. PROCEDURE PERFORMED: 1. Cystoscopy. 2. Right retrograde pyelogram (upper and lower pole moieties). 3. Right ureteroscopy (upper pole moiety). 4. Right ureteral stent exchanges (upper and lower pole moieties). STAFF: Ren Pérez MD COMPLICATIONS: None. DRAINS: 1. 6 x 30 right upper pole moiety stent. 2. 4.8 x 28 right lower pole moiety stent. COMPLICATIONS: None. ESTIMATED BLOOD LOSS: None. SPECIMENS: None. INDICATIONS FOR PROCEDURE: The patient is a 38-year-old female who was taken to the OR approximately 3 days ago for right ureteroscopy in a duplicated system due to nephrolithiasis. At that time, I placed a stent in the upper and lower pole moieties. She was discharged home postoperatively. Unfortunately, she presented postoperatively with significant right-sided flank pain. A CT demonstrated the upper pole moiety stent had migrated down into the urinary bladder. After thorough discussion, decision was made to proceed with cystoscopy, retrograde pyelograms, possible stent removal versus exchange. DESCRIPTION OF PROCEDURE: On 08/05/2019, after consent was obtained, the [address] [address] OPERATIVE REPORT Name: LUANNSUMMERPRINCESS CANTRELL Room: [address] R.#: [id number] Admission: 08/04/19 Attend Phys: Patircio Lares Discharge: Date of : 76 Report #: [id number] patient was taken to the operating room and placed in supine position. She was then placed under general anesthesia. She received preoperative IV Kefzol for antibiotic coverage. She was then placed in dorsal lithotomy and her genitals were prepped and draped in normal sterile fashion. Next, we began the procedure by inserting a 22.5-[place]izen [place] rigid cystoscope transurethrally without any difficulty. Once in the bladder, I identified the migrated stent and this was removed with an alligator forceps. I then turned my attention to the upper pole moiety ureteral orifice, which was identified. I attempted to cannulate this with a sensor wire; however, I met immediate resistance within the UO. A 5-Citizen [place] open-ended stent was then utilized along with an angle-tipped Glidewire until the wire traveled into the ureter. This wire was then transferred out for a sensor wire and passed up the renal pelvis under fluoroscopic guidance. At this point, I withdrew the cystoscope and inserted a semirigid ureteroscope. I passed this up alongside the sensor wire into the distal ureter. It was quite edematous from the prior procedure. I was able to pass it into the proximal ureter. There was no evidence of any stone burden or injury. I then went through the ureteroscope. At this point, I opted to replace the stent, and I passed a 5-Citizen [place] open-ended stent over the sensor wire. Retrograde pyelogram demonstrated a mildly dilated ureter and upper pole collecting system. The sensor wire was then replaced. I selected a 6-[place]izen [place] x 30 cm stent was passed up and into the upper pole with a good coil under fluoroscopic guidance, had a good coil in the urinary bladder under direct visual guidance. At this point, it appeared as though the lower pole stent had migrated distally as well and potentially into the proximal ureter, so this was removed. I passed a 5-Citizen [place] open-ended stent into the lower pole moiety ureter. Retrograde pyelogram demonstrated a very hydronephrotic system. A sensor wire was then replaced. I selected a 4.8 Citizen [place] x 28 cm stent, which was passed up in the lower pole with a good coil under fluoroscopic guidance, had a good coil in the urinary bladder under direct visual guidance. The patient's bladder was emptied. Scope was withdrawn. I used viscous lidocaine at the urethral meatus and a B and O suppository was also placed. By: 31 Shay Pérez MD /estela
[~2019-08-03 21:39] MED LIST changes: -CEFTRIAXON1 GM/50 M1 IVPB; -CEFUROXIME500 MG PO; -IBU400 MG PO; -ONDANSETRON HCL4 M2 PO; -PEPCID20 MG PO; -PHENAZOPYRIDIN100 M1 PO; -SENOKOT-S TABL1 EACH PO
[2019-08-03 21:58] VITALS: BP 136/101
[2019-08-03 22:15] LABS: URINE BILIRUBIN NEGATIVE (Negative); URINE BLOOD 3+ (Negative); URINE CLARITY CLEAR; URINE COLOR DARK YELLOW; URINE GLUCOSE-RANDOM NEGATIVE (Negative); URINE KETONES TRACE (Negative); URINE LEUKOCYTES-REFLEX 1+ (Negative); URINE NITRITE-REFLEX NEGATIVE (Negative); URINE PROTEIN 3+ (Negative); URINE SPECIFIC GRAVITY >= 1.030 (1.005-1.030); URINE UROBILINOGEN 0.2 E.U./dl (0.2-1.0)
[2019-08-03 22:32] LABS: CASTS None Seen /LPF (None Seen); CRYSTALS None Seen /LPF (None Seen); MUCUS 0-3 Light strn/LPF (None Seen); SQUAMOUS 0-3 Few /LPF (0-3); URINE RBC >20 Many /HPF (0-2)
[2019-08-04 00:15] LABS: ABSOLUTE BASOPHILS 0.1 thou/uL (0.0-0.2); ABSOLUTE EOSINOPHILS 0.4 thou/uL (0.0-0.7); ABSOLUTE LYMPHOCYTES 3.3 thou/uL (0.8-5.3); ABSOLUTE MONOCYTES 1.1 thou/uL (0.0-1.2); ABSOLUTE NEUTROPHILS 11.2 thou/uL (1.6-8.1); BASOPHILS 0.4 %; EOSINOPHILS 2.6 %; HEMATOCRIT 39.3 % (37.0-47.0); LYMPHOCYTES 20.6 %; MCH 24.4 pg (26.0-34.0); MCHC 33.1 g/dL (28.0-37.0); MCV 73.5 fL (80.0-100.0); MONOCYTES 6.6 %; MPV 9.9 fl. (7.2-11.1); NUCLEATED RBCS 0 /100WBC; PLATELET COUNT* 238 thou/uL (150-400); POLYS 69.8 %; RBC 5.35 mil/uL (4.20-5.00); RDW-CV 17.7 % (10.5-14.5)
[2019-08-04 00:17] LABS: CREATININE 1.3 mg/dL (0.6-1.3); POTASSIUM 3.6 mmol/L (3.5-5.1)
[2019-08-04 01:25] LABS: AMP/METHAMP Negative (Negative); BARBITURATES Negative (Negative); BENZODIAZEPINES POSITIVE (Negative); COCAINE Negative (Negative); METHADONE Negative (Negative); OPIATES POSITIVE (Negative); PCP Negative (Negative); THC POSITIVE (Negative)
[2019-08-04 01:52] VITALS: BP 130/87
[2019-08-04 02:00] VITALS: BP 117/80
[2019-08-04 09:00] VITALS: BP 136/100
[2019-08-04 09:31] LABS: HEMATOCRIT 35.8 % (37.0-47.0); HEMOGLOBIN 11.8 gm/dL (12.0-15.0); MCH 24.2 pg (26.0-34.0); MCV 73.5 fL (80.0-100.0); MPV 9.2 fl. (7.2-11.1); RBC 4.87 mil/uL (4.20-5.00); RDW-CV 17.5 % (10.5-14.5); WBC 11.1 thou/uL (4.0-11.0)
[2019-08-04 09:39] LABS: CALCIUM 8.3 mg/dL (8.5-10.1); CREATININE 1.2 mg/dL (0.6-1.3); POTASSIUM 3.9 mmol/L (3.5-5.1)
[2019-08-04 15:55] VITALS: BP 93/57
[2019-08-04 22:00] VITALS: BP 105/73
[2019-08-05 03:15] LABS: HEMATOCRIT 32.6 % (37.0-47.0); HEMOGLOBIN 10.6 gm/dL (12.0-15.0); MCH 24.1 pg (26.0-34.0); MCHC 32.6 g/dL (28.0-37.0); MPV 9.2 fl. (7.2-11.1); RBC 4.41 mil/uL (4.20-5.00); RDW-CV 17.6 % (10.5-14.5); WBC 7.1 thou/uL (4.0-11.0)
[2019-08-05 03:51] LABS: CALCIUM 8.5 mg/dL (8.5-10.1); MAGNESIUM 1.7 mg/dL (1.8-2.4)
[2019-08-05 08:00] VITALS: BP 115/72
[2019-08-05] MEDS ORDERED: IBU400 MG PO ×2 (08:53)
[2019-08-05] MEDS ORDERED: PHENAZOPYRIDIN100 M1 PO ×2 (08:53)
[2019-08-05] MEDS ORDERED: OXYBUTYNIN 5 MG5 M2 PO ×3 (08:53→17:11)
[2019-08-05] MEDS ORDERED: FLOMAX0.4 MG PO ×2 (08:53)
[2019-08-05] MEDS ORDERED: CEFUROXIME500 MG PO (08:53)
[2019-08-05 16:00] VITALS: BP 128/83
[2019-08-05] MEDS ORDERED: CEFTRIAXON1 GM/50 M1 IVPB ×2 (17:07)
[2019-08-05] MEDS ORDERED: PHENAZOPYRIDIN200 M2 PO (17:08)
[2019-08-05] MEDS ORDERED: PEPCID20 MG PO (17:12)
[2019-08-05] MEDS ORDERED: SENOKOT-S TABL1 EACH PO (17:12)
[2019-08-05 20:42] VITALS: BP 135/85
[2019-08-06 00:15] VITALS: BP 100/62
[2019-08-06 03:56] LABS: HEMATOCRIT 32.7 % (37.0-47.0); MCH 24.7 pg (26.0-34.0); MCHC 33.5 g/dL (28.0-37.0); MCV 73.8 fL (80.0-100.0); MPV 9.4 fl. (7.2-11.1); RBC 4.44 mil/uL (4.20-5.00); RDW-CV 16.9 % (10.5-14.5); WBC 8.2 thou/uL (4.0-11.0)
[2019-08-06 04:27] LABS: CALCIUM 8.6 mg/dL (8.5-10.1); CREATININE 1.1 mg/dL (0.6-1.3); MAGNESIUM 1.6 mg/dL (1.8-2.4); POTASSIUM 4.6 mmol/L (3.5-5.1)
[2019-08-06 04:45] VITALS: BP 103/65
[2019-08-06 09:10] VITALS: BP 124/48
[2019-08-06 09:53] VITALS: BP 124/48
[2019-08-06] MEDS ORDERED: ONDANSETRON HCL4 M2 PO (10:03)
== END 2019-08-06 10:43 | disposition home or self-care (01) | DRG 660 ==
LOC: M.ERS 21:39 → M.ORTHSURG 08-04 00:18 → M.TBA-ER 08-04 00:18 → M.ORTHSURG 08-04 01:57
PROVIDERS: Emergency Medicine; Internal Medicine; Nurse Practitioner Adult Health; Urology; ADMIT Family Medicine
PROC: 0TP98DZ Removal of Intraluminal Device from Ureter, Via Natural or Artificial Opening Endoscopic (ICD-10-PCS; principal; 2019-08-05)
PROC: BT1D1ZZ Fluoroscopy of Right Kidney, Ureter and Bladder using Low Osmolar Contrast (ICD-10-PCS; principal; 2019-08-05)
PROC: 0T768DZ Dilation of Right Ureter with Intraluminal Device, Via Natural or Artificial Opening Endoscopic (ICD-10-PCS; principal; 2019-08-05)
DX: T83.123A Displacement of other urinary stents, initial encounter (principal); N20.1 Calculus of ureter; N30.01 Acute cystitis with hematuria; F11.20 Opioid dependence, uncomplicated; Y83.8 Other surgical procedures as the cause of abnormal reaction of the patient, or of later complication, without mention of misadventure at the time of the procedure; G89.29 Other chronic pain; M54.9 Dorsalgia, unspecified; Z96.0 Presence of urogenital implants; K21.9 Gastro-esophageal reflux disease without esophagitis; Y92.89 Other specified places as the place of occurrence of the external cause; Z90.49 Acquired absence of other specified parts of digestive tract; Z87.442 Personal history of urinary calculi; Z79.899 Other long term (current) drug therapy; Z88.8 Allergy status to other drugs, medicaments and biological substances

== ENCOUNTER 2019-08-07 19:58 | Emergency (ER) | payer BC ==
[~2019-08-07] VITALS: Ht 185.4 cm; Wt 93.0 kg
[~2019-08-07 19:58] MED LIST changes: +CEFTRIAXON1 GM/50 M1 IVPB; +CEFUROXIME500 MG PO; +IBU400 MG PO; +ONDANSETRON HCL4 M2 PO; +PEPCID20 MG PO; +PHENAZOPYRIDIN100 M1 PO; +SENOKOT-S TABL1 EACH PO
[2019-08-07 20:35] LABS: ABSOLUTE EOSINOPHILS 0.2 thou/uL (0.0-0.7); ABSOLUTE LYMPHOCYTES 2.4 thou/uL (0.8-5.3); ABSOLUTE MONOCYTES 0.4 thou/uL (0.0-1.2); ABSOLUTE NEUTROPHILS 4.4 thou/uL (1.6-8.1); BASOPHILS 0.6 %; EOSINOPHILS 2.8 %; HEMATOCRIT 34.3 % (37.0-47.0); HEMOGLOBIN 11.4 gm/dL (12.0-15.0); LYMPHOCYTES 32.5 %; MCH 24.6 pg (26.0-34.0); MCHC 33.2 g/dL (28.0-37.0); MCV 74.2 fL (80.0-100.0); MONOCYTES 5.1 %; MPV 8.9 fl. (7.2-11.1); NUCLEATED RBCS 0 /100WBC; PLATELET COUNT* 218 thou/uL (150-400); RBC 4.62 mil/uL (4.20-5.00); RDW-CV 17.8 % (10.5-14.5); WBC 7.4 thou/uL (4.0-11.0)
[2019-08-07 20:44] LABS: CALCIUM 8.4 mg/dL (8.5-10.1); CREATININE 1.1 mg/dL (0.6-1.3); POTASSIUM 3.6 mmol/L (3.5-5.1); PROTIME 10.4 Seconds (9.20-11.50)
[2019-08-07 23:02] VITALS: BP 124/76
== END 2019-08-07 23:03 | disposition home or self-care (01) ==
LOC: M.ERS 19:58
PROVIDERS: Personal Emergency Response Attendant
DX: I82.612 Acute embolism and thrombosis of superficial veins of left upper extremity (principal); G89.29 Other chronic pain; F17.210 Nicotine dependence, cigarettes, uncomplicated; Z90.49 Acquired absence of other specified parts of digestive tract; Z87.442 Personal history of urinary calculi

== ENCOUNTER 2019-09-28 02:07 | Emergency (ER) | payer BC ==
[~2019-09-28] VITALS: Ht 185.4 cm; Wt 95.3 kg
[2019-09-28] MEDS ORDERED: HYDROCODONE-IB1 EAC3 PO (02:35)
[2019-09-28 02:55] VITALS: BP 120/87
== END 2019-09-28 02:55 | disposition home or self-care (01) ==
LOC: M.ERS 02:07
DX: G43.909 Migraine, unspecified, not intractable, without status migrainosus (principal); M54.2 Cervicalgia; M54.9 Dorsalgia, unspecified; G89.29 Other chronic pain; F17.210 Nicotine dependence, cigarettes, uncomplicated; Z90.49 Acquired absence of other specified parts of digestive tract; Z86.718 Personal history of other venous thrombosis and embolism; Z87.442 Personal history of urinary calculi; Z88.6 Allergy status to analgesic agent

== ENCOUNTER 2019-11-23 06:55 | Emergency (ER) | payer BC ==
[~2019-11-23] VITALS: Ht 185.4 cm; Wt 95.3 kg
[2019-11-23 07:36] LABS: ABSOLUTE EOSINOPHILS 0.2 thou/uL (0.0-0.7); ABSOLUTE LYMPHOCYTES 2.5 thou/uL (0.8-5.3); ABSOLUTE MONOCYTES 0.4 thou/uL (0.0-1.2); ABSOLUTE NEUTROPHILS 4.1 thou/uL (1.6-8.1); BASOPHILS 0.6 %; EOSINOPHILS 3.3 %; HEMATOCRIT 42.9 % (37.0-47.0); HEMOGLOBIN 14.4 gm/dL (12.0-15.0); LYMPHOCYTES 34.5 %; MCH 25.8 pg (26.0-34.0); MCHC 33.7 g/dL (28.0-37.0); MCV 76.6 fL (80.0-100.0); MONOCYTES 5.8 %; NUCLEATED RBCS 0 /100WBC; PLATELET COUNT* 201 thou/uL (150-400); POLYS 55.8 %; RDW-CV 17.6 % (10.5-14.5); WBC 7.3 thou/uL (4.0-11.0)
[2019-11-23 07:47] LABS: CALCIUM 10.4 mg/dL (8.5-10.1); CREATININE 1.1 mg/dL (0.6-1.3); POTASSIUM 3.4 mmol/L (3.5-5.1)
[2019-11-23 08:39] VITALS: BP 149/99
--- NOTE | 2019-11-23 14:17 | EKG ---
[place] [address] ELECTROCARDIOGRAM REPORT Name: SUMMER KONG Room: [facility]#: [id number] Admission: 11/23/19 Attend Phys: Discharge: 11/23/19 Date of : 76 Date of Service: 11/23/19 0744 Report #: [id number] THIS REPORT FOR: //name// [facility] ED Test Date: 2019-11-23 Test Time: 07:44:27 Pat Name: SUMMER KONG Department: Room: Gender: F Flat Sorter Processor: : 1980 Requested By: Sandro Sandoval Order Number: [id number] MD: Martinez English Measurements Intervals [place] Rate: 58 P: 70 [place]: 154 QRS: -7 QRSD: 111 T: 48 QT: 443 QTc: 436 Interpretive Statements Sinus rhythm Baseline wander in lead(s) II,III,aVF Compared to ECG 06/19/2019 11:47:20 T-wave abnormality no longer present Electronically Signed On 11-23-2019 14:16:25 CDT by Martinez English [email or web address] <ELECTRONICALLY SIGNED> By: Martinez English MD, [facility] 11/23/19 1416 0744 0744 Martinez English MD, [facility] /EPI
== END 2019-11-23 08:40 | disposition home or self-care (01) ==
LOC: M.ERS 06:55
PROVIDERS: Family Medicine
DX: B34.9 Viral infection, unspecified (principal); G43.909 Migraine, unspecified, not intractable, without status migrainosus; G89.29 Other chronic pain; F17.210 Nicotine dependence, cigarettes, uncomplicated; Z90.49 Acquired absence of other specified parts of digestive tract; Z87.442 Personal history of urinary calculi; Z86.718 Personal history of other venous thrombosis and embolism; Z88.6 Allergy status to analgesic agent

== ENCOUNTER 2020-04-11 19:27 | Emergency (ER) | payer BC ==
[~2020-04-11] VITALS: Ht 185.4 cm; Wt 86.2 kg
[2020-04-12 01:35] LABS: ABSOLUTE EOSINOPHILS 0.2 thou/uL (0.0-0.7); ABSOLUTE LYMPHOCYTES 3.6 thou/uL (0.8-5.3); ABSOLUTE MONOCYTES 0.7 thou/uL (0.0-1.2); ABSOLUTE NEUTROPHILS 5.7 thou/uL (1.6-8.1); BASOPHILS 0.4 %; HEMOGLOBIN 14.1 gm/dL (12.0-15.0); LYMPHOCYTES 35.5 %; MCHC 33.5 g/dL (28.0-37.0); MCV 80.4 fL (80.0-100.0); MONOCYTES 6.4 %; MPV 8.9 fl. (7.2-11.1); NUCLEATED RBCS 0 /100WBC; PLATELET COUNT* 195 thou/uL (150-400); POLYS 55.7 %; RBC 5.22 mil/uL (4.20-5.00); RDW-CV 16.4 % (10.5-14.5); WBC 10.2 thou/uL (4.0-11.0)
[2020-04-12 02:01] LABS: CREATININE 0.9 mg/dL (0.6-1.3); POTASSIUM 3.6 mmol/L (3.5-5.1)
[2020-04-12 02:12] LABS: ALBUMIN 3.9 g/dL (3.4-5.0); MAGNESIUM 1.7 mg/dL (1.8-2.4); TOTAL BILIRUBIN 0.4 mg/dL (<0.1-1.0); TOTAL PROTEIN 7.2 g/dL (6.4-8.2)
[2020-04-12] MEDS ORDERED: IBUPROFEN 800800 M1 PO (03:49)
[2020-04-12] MEDS ORDERED: LIDODERM1 EACH TOP (03:49)
[2020-04-12] MEDS ORDERED: FLEXERIL PO (03:49)
[2020-04-12 04:06] VITALS: BP 110/56
--- NOTE | 2020-04-12 10:50 | EKG ---
[place] [address] ELECTROCARDIOGRAM REPORT Name: LUANNSUMMER TAMIA Room: [facility]#: [id number] Admission: 04/11/20 Attend Phys: Discharge: 04/12/20 Date of : 76 Date of Service: 04/12/20114 Report #: [id number] THIS REPORT FOR: //name// [facility] ED Test Date: 2020-04-12 Test Time: 01:15:20 Pat Name: SUMMER KONG Department: Room: Gender: F Residential Nurse: [facility] : 1980 Requested By: Zachary Pierce Order Number: [id number] MD: Martinez English Measurements Intervals [place] Rate: 49 P: 56 OK: 147 QRS: 53 QRSD: 107 T: 60 QT: 488 QTc: 441 Interpretive Statements Sinus bradycardia Compared to ECG 11/23/2019 07:44:27 Sinus rhythm no longer present Electronically Signed On 04-12-2020 10:50:21 PARKING METER ATTENDANT by Martinez English [email or web address] <ELECTRONICALLY SIGNED> By: Martinez English MD, [facility] 04/12/20 1050 4 4 Martinez English MD, FACC /EPI
== END 2020-04-12 04:06 | disposition home or self-care (01) ==
LOC: M.ERS 19:27
PROVIDERS: Emergency Medicine Emergency Medical Services
DX: R07.89 Other chest pain (principal); M54.5 Low back pain; G89.29 Other chronic pain; F17.210 Nicotine dependence, cigarettes, uncomplicated; Z88.6 Allergy status to analgesic agent; Z90.49 Acquired absence of other specified parts of digestive tract; Z87.442 Personal history of urinary calculi; Z86.718 Personal history of other venous thrombosis and embolism

== ENCOUNTER 2020-06-25 07:46 | Emergency (ER) | payer BC ==
[~2020-06-25] VITALS: Ht 185.4 cm; Wt 95.3 kg
[~2020-06-25 07:46] MED LIST changes: +IBUPROFEN 800800 M1 PO; +LIDODERM1 EACH TOP
[2020-06-25 08:26] LABS: CREATININE 0.9 mg/dL (0.6-1.3); POTASSIUM 3.5 mmol/L (3.5-5.1)
[2020-06-25 10:03] LABS: URINE BLOOD NEGATIVE (Negative); URINE CLARITY CLEAR; URINE COLOR YELLOW; URINE GLUCOSE-RANDOM NEGATIVE (Negative); URINE KETONES NEGATIVE (Negative); URINE LEUKOCYTES-REFLEX NEGATIVE (Negative); URINE NITRITE-REFLEX NEGATIVE (Negative); URINE PROTEIN NEGATIVE (Negative); URINE SPECIFIC GRAVITY 1.025 (1.005-1.030); URINE UROBILINOGEN 0.2 E.U./dl (0.2-1.0)
[2020-06-25 10:06] LABS: ICTOTEST (BILI CONFIRMATORY) Negative (Negative); URINE BILIRUBIN 1+ (Negative)
[2020-06-25] MEDS ORDERED: ZOFRAN ODT4 MG DISSOLVE (10:11)
[2020-06-25] MEDS ORDERED: ULTRAM50 MG PO (10:11)
[2020-06-25 10:48] LABS: ALBUMIN 4.1 g/dL (3.4-5.0); DIRECT BILIRUBIN 0.1 mg/dL (<0.1-0.3); TOTAL BILIRUBIN 0.4 mg/dL (<0.1-1.0); TOTAL PROTEIN 7.1 g/dL (6.4-8.2)
[2020-06-25 11:11] VITALS: BP 124/76
== END 2020-06-25 11:11 | disposition home or self-care (01) ==
LOC: M.ERS 07:46
PROVIDERS: Emergency Medicine Emergency Medical Services
DX: N20.0 Calculus of kidney (principal); F17.210 Nicotine dependence, cigarettes, uncomplicated; Z90.710 Acquired absence of both cervix and uterus; Z90.49 Acquired absence of other specified parts of digestive tract; Z79.899 Other long term (current) drug therapy; Z88.8 Allergy status to other drugs, medicaments and biological substances

== ENCOUNTER 2020-12-26 14:10 | Emergency (ER) | payer BC ==
[~2020-12-26] VITALS: Ht 185.4 cm; Wt 99.8 kg
[~2020-12-26 14:10] MED LIST changes: +ULTRAM50 MG PO; +ZOFRAN ODT4 MG DISSOLVE
[2020-12-26 14:48] LABS: ABSOLUTE BASOPHILS 0.1 thou/uL (0.0-0.2); ABSOLUTE EOSINOPHILS 0.2 thou/uL (0.0-0.7); ABSOLUTE LYMPHOCYTES 2.4 thou/uL (0.8-5.3); ABSOLUTE MONOCYTES 0.4 thou/uL (0.0-1.2); ABSOLUTE NEUTROPHILS 5.5 thou/uL (1.6-8.1); BASOPHILS 0.6 %; EOSINOPHILS 2.2 %; HEMATOCRIT 46.9 % (37.0-47.0); HEMOGLOBIN 16.5 gm/dL (12.0-15.0); MCH 30.6 pg (26.0-34.0); MCHC 35.1 g/dL (28.0-37.0); MCV 87.1 fL (80.0-100.0); MONOCYTES 5.1 %; MPV 8.7 fl. (7.2-11.1); NUCLEATED RBCS 0 /100WBC; PLATELET COUNT* 194 thou/uL (150-400); POLYS 64.1 %; RBC 5.39 mil/uL (4.20-5.00); RDW-CV 14.6 % (10.5-14.5); WBC 8.5 thou/uL (4.0-11.0)
[2020-12-26 14:56] LABS: CALCIUM 9.2 mg/dL (8.5-10.1); POTASSIUM 3.9 mmol/L (3.5-5.1)
[2020-12-26] MEDS ORDERED: FLEXERIL PO (16:25)
[2020-12-26] MEDS ORDERED: ONDANSETRON ODT4 MG PO (16:25)
--- NOTE | 2020-12-26 16:38 | EKG ---
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
[2020-12-26 16:39] VITALS: BP 135/88
== END 2020-12-26 16:40 | disposition home or self-care (01) ==
LOC: M.ERS 14:10
PROVIDERS: Nurse Practitioner Family
DX: G43.909 Migraine, unspecified, not intractable, without status migrainosus (principal); Z20.822 Contact with and (suspected) exposure to COVID-19; R11.2 Nausea with vomiting, unspecified; G89.29 Other chronic pain; R19.7 Diarrhea, unspecified; F17.210 Nicotine dependence, cigarettes, uncomplicated; Z90.49 Acquired absence of other specified parts of digestive tract; Z87.442 Personal history of urinary calculi; Z98.890 Other specified postprocedural states; Z88.6 Allergy status to analgesic agent

== ENCOUNTER 2020-12-28 15:10 | Emergency (ER) | payer BC ==
[~2020-12-28] VITALS: Ht 185.4 cm; Wt 83.9 kg
[~2020-12-28 15:10] MED LIST changes: +ONDANSETRON ODT4 MG PO
[2020-12-28 15:13] VITALS: BP 142/96
--- NOTE | 2020-12-29 09:16 | EKG ---
[place] [address] ELECTROCARDIOGRAM REPORT Name: SUMMER KONG Room: [facility]#: [id number] Admission: 12/28/20 Attend Phys: Discharge: 12/28/20 Date of : 76 Date of Service: 12/28/20 1516 Report #: [id number] THIS REPORT FOR: //name// [facility] ED Test Date: 2020-12-28 Test Time: 15:16:45 Pat Name: SUMMER KONG Department: Room: Gender: F Wire Walker: : 1980 Requested By: Zachary Pierce Order Number: [id number] Reading MD: Jacobo Clarke Measurements Intervals [place] Rate: 61 P: 69 SD: 151 QRS: -55 QRSD: 103 T: 57 QT: 432 QTc: 435 Interpretive Statements Sinus rhythm LAD, consider left anterior fascicular block Borderline T wave abnormalities Baseline wander in lead(s) III,aVF,V1 Compared to ECG 12/26/2020 14:27:46 T-wave abnormality now present Sinus bradycardia no longer present Electronically Signed On 12-29-2020 9:16:18 CDT by Jacobo Clarke [email or web address] <ELECTRONICALLY SIGNED> By: Alice Clarke MD, [facility] 12/29/20 0916 1516 1516 Alice Clarke MD, [facility] /EPI
== END 2020-12-28 17:33 | disposition left against medical advice (07) ==
LOC: M.ERS 15:10
DX: Z53.21 Procedure and treatment not carried out due to patient leaving prior to being seen by health care provider (principal)

== ENCOUNTER 2021-01-11 20:36 | Emergency (ER) | payer BC ==
[~2021-01-11] VITALS: Ht 185.4 cm; Wt 99.8 kg
[2021-01-11 21:39] LABS: ABSOLUTE BASOPHILS 0.1 thou/uL (0.0-0.2); ABSOLUTE EOSINOPHILS 0.2 thou/uL (0.0-0.7); ABSOLUTE LYMPHOCYTES 1.9 thou/uL (0.8-5.3); ABSOLUTE MONOCYTES 0.6 thou/uL (0.0-1.2); BASOPHILS 0.6 %; EOSINOPHILS 1.8 %; HEMATOCRIT 47.2 % (37.0-47.0); HEMOGLOBIN 15.8 gm/dL (12.0-15.0); LYMPHOCYTES 19.7 %; MCH 29.1 pg (26.0-34.0); MCHC 33.6 g/dL (28.0-37.0); MCV 86.7 fL (80.0-100.0); MONOCYTES 5.8 %; MPV 8.7 fl. (7.2-11.1); NUCLEATED RBCS 0 /100WBC; PLATELET COUNT* 172 thou/uL (150-400); POLYS 72.1 %; RBC 5.44 mil/uL (4.20-5.00); RDW-CV 14.3 % (10.5-14.5); WBC 9.7 thou/uL (4.0-11.0)
[2021-01-11 21:45] LABS: CALCIUM 8.8 mg/dL (8.5-10.1); CREATININE 1.2 mg/dL (0.6-1.3); POTASSIUM 3.4 mmol/L (3.5-5.1)
[2021-01-11 21:50] LABS: ALBUMIN 4.1 g/dL (3.4-5.0); TOTAL BILIRUBIN 0.7 mg/dL (<0.1-1.0); TOTAL PROTEIN 7.2 g/dL (6.4-8.2)
[2021-01-11] MEDS ORDERED: ALBUTEROL2.5 MG/31 INH (23:28)
[2021-01-11] MEDS ORDERED: NEBULIZER MISCELL (23:28)
[2021-01-11] MEDS ORDERED: MEDROLDOSEPACK PO (23:28)
[2021-01-11 23:37] VITALS: BP 108/67
--- NOTE | 2021-01-12 10:32 | EKG ---
[place] [address] ELECTROCARDIOGRAM REPORT Name: KONGSUMMERPRINCESS CATNRELL Room: [facility]#: [id number] Admission: 01/11/21 Attend Phys: Discharge: 01/11/21 Date of : 76 Date of Service: 01/11/212116 Report #: [id number] THIS REPORT FOR: //name// [facility] ED Test Date: 2021-01-11 Test Time: 21:17:08 Pat Name: SUMMER KONG Department: Room: Gender: F Urban Design Consultant: [place] : 1980 Requested By: Loren Marcos Order Number: [id number] MD: Martinez English Measurements Intervals [place] Rate: 86 P: 62 TN: 156 QRS: -57 QRSD: 100 T: 40 QT: 377 QTc: 451 Interpretive Statements Sinus rhythm LAD, consider left anterior fascicular block Compared to ECG 12/28/2020 15:16:45 T-wave abnormality no longer present Electronically Signed On 01-12-2021 10:32:18 CDT by Martinez English [email or web address] <ELECTRONICALLY SIGNED> By: Martinez English MD, [facility] 01/12/21 1032 16 16 Martinez English MD, [facility] /EPI
== END 2021-01-11 23:37 | disposition home or self-care (01) ==
LOC: M.ERS 20:36
PROVIDERS: Physician Assistant
DX: R06.00 Dyspnea, unspecified (principal); Z20.822 Contact with and (suspected) exposure to COVID-19; F12.90 Cannabis use, unspecified, uncomplicated; F17.210 Nicotine dependence, cigarettes, uncomplicated; G89.29 Other chronic pain; Z88.6 Allergy status to analgesic agent; Z90.710 Acquired absence of both cervix and uterus; Z90.49 Acquired absence of other specified parts of digestive tract; Z87.442 Personal history of urinary calculi; Z86.718 Personal history of other venous thrombosis and embolism

== ENCOUNTER 2021-04-28 18:48 | Emergency (ER) | payer BC ==
[~2021-04-28] VITALS: Ht 185.4 cm; Wt 81.7 kg
[~2021-04-28 18:48] MED LIST changes: +ALBUTEROL2.5 MG/31 INH; +NEBULIZER MISCELL
[2021-04-28 19:14] VITALS: BP 182/109
--- NOTE | 2021-05-02 16:31 | EKG ---
[place] [address] ELECTROCARDIOGRAM REPORT Name: LUANNSUMMER TAMIA Room: [facility]#: [id number] Admission: 04/28/21 Attend Phys: Discharge: 04/28/21 Date of : 76 Date of Service: 04/28/211853 Report #: [id number] THIS REPORT FOR: //name// [facility] ED Test Date: 2021-04-28 Test Time: 18:54:22 Pat Name: SUMMER KONG Department: Room: Gender: F Haz Tech: LYNDSAY : 1980 Requested By: Mari Quijano Order Number: [id number] Vicki MD: Martinez English Measurements Intervals [place] Rate: 57 P: 72 [place]: 155 QRS: 17 QRSD: 105 T: 55 QT: 436 QTc: 425 Interpretive Statements Sinus rhythm Compared to ECG 01/11/2021 21:17:08 No significant changes Electronically Signed On 05-02-2021 16:31:37 SIGNS CLEANER by Martinez English [email or web address] <ELECTRONICALLY SIGNED> By: Martinez English MD, [facility] 05/02/211630 53 53 Martinez English MD, FACC /EPI
== END 2021-04-28 19:23 | disposition left against medical advice (07) ==
LOC: M.ERS 18:48
DX: R07.89 Other chest pain (principal); R11.10 Vomiting, unspecified; Z53.21 Procedure and treatment not carried out due to patient leaving prior to being seen by health care provider